=== PATIENT | male | born 1960 | race Caucasian/White ===

== ENCOUNTER 2018-08-17 10:36 | Emergency (ER) | payer OTHER ==
[2018-08-17] MEDS ORDERED: PROPARACAINE 0.5% OPHTH DROPS 15 ML EACHEYE STA (12:15)
--- NOTE | 2018-08-17 12:36 | ED Physician Documentation ---
History of Present Illness - Stated complaint Stated Complaint: SOMETHING IN L EYE - Chief complaint Chief Complaint: Heent - History obtained from History obtained from: Patient - History of Present Illness Timing: How many days ago (3) Pain level max: 3 Pain level now: 1 - Additonal information Additional information: 57-year-old male with a left eye foreign body sensation for the past several days. There is clear tearing. Does not wear contacts. Does not recall any trauma. No redness or drainage nothing makes it better or worse Review of Systems Constitutional: denies: Fever Eyes: reports: Irritation. denies: Photophobia PD PAST MEDICAL HISTORY - Past Medical History Past Medical History: No - Past Surgical History Past Surgical History: No - Present Medications Home Medications: Ambulatory Orders Medication Instructions Recorded Confirmed Polymyxin B/Trimeth Ophth Drop 1 drops LEFTEYE Q3H 7 Days #1 08/17/18 [Polytrim Ophth Drops] bottle - Allergies Allergies/Adverse Reactions: Allergies Allergy/AdvReac Type Severity Reaction Status Date / Time Penicillins Allergy Unknown Verified 08/17/18 10:51 - Social History Does the pt smoke?: No Smoking Status: Never smoker Does the pt drink ETOH?: Yes Does the pt have substance abuse?: No - Immunizations Immunizations are current?: Yes - POLST Patient has POLST: No PD ED PE NORMAL - Vitals Vital signs reviewed: Yes - General General: Alert and oriented X 3 - HEENT HEENT: Other (L eye - Mild conjunctival injection. Clear tearing. Fluorescein stain reveals an abrasion to the upper cornea, approximately 11 o'clock position. No foreign body in the cornea. Eyelids everted. No foreign body visible. Otherwise normal exam) - Neck Neck: Supple, no meningeal sign - Neuro Neuro: Alert and oriented X 3 Results - Vitals Vitals: Vital Signs - 24 hr 08/17/18 08/17/18 10:48 12:50 Temperature 36.1 C L 36.2 C L Heart Rate 57 L 60 Respiratory 18 18 Rate Blood Pressure 138/80 H 130/81 H O2 Saturation 100 100 Oxygen O2 Source Room air PD MEDICAL DECISION MAKING - ED course Complexity details: considered differential, d/w patient ED course: 57-year-old male with a left Corneal abrasion. Will place on Polytrim ophthalmic for home. Patient counseled regarding signs and symptoms for which I believe and urgent re-evaluation would be necessary. Patient with good unders tanding of and agreement to plan and is comfortable going home at this time This document was made in part using voice recognition software. While efforts are made to proofread this document, sound alike and grammatical errors may occur. Departure - Departure Disposition: 01 Home, Self Care Clinical Impression: Corneal abrasion, left Qualifiers: Encounter type: initial encounter Qualified Code(s): S05.02XA - Injury of conjunctiva and corneal abrasion without foreign body, left eye, initial encounter Condition: Good Instructions: ED Eye Injury Corneal Abrasion Follow-Up: your,doctor in 1 week [Other] Prescriptions: Polymyxin B/Trimeth Ophth Drop [Polytrim Ophth Drops] 1 drops LEFTEYE Q3H 7 Days #1 bottle Comments: Take the anitbiotics until gone. Use them while you are awake. Return if you worsen. Discharge Date/Time: 08/17/18 12:50
[2018-08-17 12:51] VITALS: BP 130/81
== END 2018-08-17 12:50 | disposition home or self-care (01) ==
LOC: ED 10:36
DX: S05.02XA Injury of conjunctiva and corneal abrasion without foreign body, left eye, initial encounter (principal); X58.XXXA Exposure to other specified factors, initial encounter
CPT/HCPCS: 99283; J3490

== ENCOUNTER 2019-03-03 15:58 | Emergency (ER) | payer OTHER ==
[2019-03-03] MEDS ORDERED: TETANUS/DIPHTHERIA/PERTUSSIS 0.5 ML SYRINGE IM ONE (16:07)
[2019-03-03] MEDS ORDERED: LIDOCAINE-EPINEPH-TETRACAINE 3 ML SYRINGE TOP STA (16:37)
--- NOTE | 2019-03-03 18:02 | ED Physician Documentation ---
PD HPI SKIN - Stated complaint Stated Complaint: FACIAL LACERATION - Chief complaint Chief Complaint: Laceration - History obtained from History obtained from: Patient - History of Present Illness Timing - onset: How many hours ago (2), Today Timing - duration: Hours (2) Timing - details: Abrupt onset Severity Comments: moderate Location: Other (nose) Quality / character: Other (laceration, not painful) Improved by: Other (pressure dressing) Worsened by (comment): COMMENT (nothing) Associated symptoms: Other (nose swelling, no nausea or vomiting, bleeding from the bridge of his nose). No: Headache Contributing factors: Other (work injury. a piece of tempered glass "exploded" and glass sprayed onto his nose.) Similar symptoms before: Has not had sx before Recently seen: Not recently seen - Treatment prior to arrival Treatment prior to arrival: gauze dressing Review of Systems Ten Systems: 10 systems reviewed and negative Eyes: reports: Reviewed and negative. denies: Loss of vision, Decreased vision, Irritation Nose: denies: Epistaxis Throat: reports: Reviewed and negative Cardiac: reports: Reviewed and negative Respiratory: reports: Reviewed and negative GI: reports: Reviewed and negative Skin: reports: Laceration (s) Musculoskeletal: reports: Reviewed and negative. denies: Neck pain Neurologic: denies: Focal weakness, Numbness PD PAST MEDICAL HISTORY - Past Medical History Past Medical History: No Cardiovascular: None Respiratory: None Neuro: None Endocrine/Autoimmune: None GI: None : None HEENT: None Psych: None Musculoskeletal: None Derm: None - Past Surgical History Past Surgical History: No - Present Medications Home Medications: Ambulatory Orders Medication Instructions Recorded Confirmed Polymyxin B/Trimeth Ophth Drop 1 drops LEFTEYE Q3H 7 Days #1 08/17/18 [Polytrim Ophth Drops] bottle - Allergies Allergies/Adverse Reactions: Allergies Allergy/AdvReac Type Severity Reaction Status Date / Time Penicillins Allergy Unknown Verified 03/03/19 16:04 - Social History Does the pt smoke?: No Smoking Status: Never smoker Does the pt drink ETOH?: Yes Does the pt have substance abuse?: No - Immunizations Immunizations are current?: No Immunizations: TDAP >10years/unknown - POLST Patient has POLST: No PD ED PE NORMAL - Vitals Vital signs reviewed: Yes - General General: Alert and oriented X 3, No acute distress, Well developed/nourished - HEENT HEENT: PERRL, EOMI, Pharynx benign - Cardiac Cardiac: RRR - Respiratory Respiratory: No respiratory distress - Abdomen Abdomen: Soft, Non distended - Male Male : Deferred - Rectal Rectal: Deferred - Derm Derm: Warm and dry, No rash - Extremities Extremities: No deformity - Neuro Neuro: Alert and oriented X 3 Eye Opening: Spontaneous Motor: Obeys Commands Verbal: Oriented GCS Score: 15 - Psych Psych: Normal mood, Normal affect PD ED PE EXPANDED - HEENT HEENT: Other (nasal bridge swelling that is moderate with an overlying laceration, no septal hematoma) - Derm Derm: Laceration(s) (nasal bridge laceration of approximately 5cm containing glass) Results - Vitals Vitals: Vital Signs - 24 hr 03/03/19 03/03/19 16:02 18:04 Temperature 36.5 C Heart Rate 85 62 Respiratory 19 18 Rate Blood Pressure 146/96 H 140/87 H O2 Saturation 98 98 Oxygen O2 Source Room air Procedures - Laceration (location) nasal bridge laceration Length in cm: 5 Wound type: Linear Neurovascular status: Sensory intact, Motor intact, Vascular intact Anesthesia: LET Wound Preparation: Irrigated copiously NS, Wound explored, FB identified (identified a moderate size pice of glass which was removed) Skin layer closure: Nylon, Size #-0 - enter number (6-0), Sutures - enter # (8) Other: Patient tolerated well, No complications, Dressing applied, Tetanus UTD Complexity: Simple PD MEDICAL DECISION MAKING - ED course Complexity details: re-evaluated patient, considered differential, d/w patient ED course: ddx- nasal laceration, nose contusion, nose fracture, septal hematoma 58 y/o M w/hx and exam as documented. Nasal contusion possible fracture. No septal hematoma. Laceration was repaired. He may have a nasal bone fracture and will need f/u for suture removal as well as to reevaluate the nose for manipulation and reduction. Pt understands and was instructed on wound care as well. Departure - Departure Disposition: 01 Home, Self Care Clinical Impression: Laceration of nose with foreign body Condition: Stable Record reviewed to determine appropriate education?: Yes Instructions: ED Laceration Facial Sutr Tape Follow-Up: your, provider [Other] - 03/08/19 (have your sutures removed in 5 days) Discharge Date/Time: 03/03/19 18:09
[2019-03-03 18:05] VITALS: BP 140/87
== END 2019-03-03 18:09 | disposition home or self-care (01) ==
LOC: ED 15:58
DX: S01.22XA Laceration with foreign body of nose, initial encounter (principal); W25.XXXA Contact with sharp glass, initial encounter; W45.8XXA Other foreign body or object entering through skin, initial encounter; Y93.H3 Activity, building and construction; Y99.0 Civilian activity done for income or pay
CPT/HCPCS: 12013; 90471

== ENCOUNTER 2019-03-08 06:33 | Emergency (ER) | payer OTHER ==
[2019-03-08 06:43] VITALS: BP 136/77
--- NOTE | 2019-03-08 06:47 | ED Physician Documentation ---
PD HPI WOUND RECHECK - Stated complaint Stated Complaint: STITCH REMOVAL - Chief complaint Chief Complaint: Laceration - Histroy obtained from History obtained from: Patient - History of Present Illness Location: Nose Timing - onset: How many days ago (5) Pain level max: 0 Pain level now: 0 Associated symptoms: No: Fever, Redness, Swelling, Drainage, Pain Review of Systems Constitutional: denies: Fever PD PAST MEDICAL HISTORY - Past Medical History Past Medical History: No Cardiovascular: None Respiratory: None Neuro: None Endocrine/Autoimmune: None GI: None : None HEENT: None Psych: None Musculoskeletal: None Derm: None - Past Surgical History Past Surgical History: No - Present Medications Home Medications: Ambulatory Orders Medication Instructions Recorded Confirmed Polymyxin B/Trimeth Ophth Drop 1 drops LEFTEYE Q3H 7 Days #1 08/17/18 [Polytrim Ophth Drops] bottle - Allergies Allergies/Adverse Reactions: Allergies Allergy/AdvReac Type Severity Reaction Status Date / Time Penicillins Allergy Unknown Verified 03/03/19 16:04 - Social History Does the pt smoke?: No Smoking Status: Never smoker Does the pt drink ETOH?: Yes Does the pt have substance abuse?: No - Immunizations Immunizations are current?: Yes Immunizations: TDAP >10years/unknown - POLST Patient has POLST: No PD ED PE NORMAL - Vitals Vital signs reviewed: Yes - General General: Alert and oriented X 3, No acute distress - HEENT HEENT: Moist mucous membranes (Well-healed laceration to the bridge of the nose. No signs of infection) - Derm Derm: Warm and dry Results - Vitals Vitals: Vital Signs - 24 hr 03/08/19 06:40 Temperature 36.0 C L Heart Rate 56 L Respiratory 14 Rate Blood Pressure 136/77 H O2 Saturation 99 Oxygen O2 Source Room air Procedures - Suture/staple Removal (location) Nasal bridge Suture/staple removal: # sutures (all), No complications PD MEDICAL DECISION MAKING - ED course Complexity details: reviewed old records, considered differential, d/w patient ED course: Sutures removed. Tolerated well. No signs of infection. Warnings of infection and instructions on wound care given at bedside. Also counseled on how to minimize scarring. Patient counseled regarding signs and symptoms for which I believe and urgent re-evaluation would be necessary. Patient with good understanding of and agreement to plan and is comfortable going home at this time This document was made in part using voice recognition software. While efforts are made to proofread this document, sound alike and grammatical errors may occur. Departure - Departure Disposition: 01 Home, Self Care Clinical Impression: Visit for suture removal Condition: Good Instructions: ED Stap Removal No Complication Follow-Up: your,doctor as needed [Other] Comments: Your wound appears well-healed. There does not appear to be any complications at this time. Return if you worsen.
== END 2019-03-08 06:48 | disposition home or self-care (01) ==
LOC: ED 06:33
DX: S01.21XD Laceration without foreign body of nose, subsequent encounter (principal)
CPT/HCPCS: 99281